=== PATIENT | male | born 1985 | race Caucasian/White ===

== ENCOUNTER 2018-03-29 15:45 | Outpatient (CLI) | payer MEDICAID ==
--- NOTE | 2018-03-30 08:28 | XRAY Report ---
Procedure Date: 03/29/2018 Accession Number: [id number] / [id number] Procedure: XRN - Cervical Spine 2 View CPT Code: FULL RESULT: EXAM: Cervical Spine 2 View DATE: 03/29/2018 4:08 PM CLINICAL HISTORY: CERVICAL RADICULOPATHY TECHNIQUE: 3 view cervical spine COMPARISON: None FINDINGS: There is mild degenerative disc disease at C5-6. The prevertebral soft tissues are unremarkable. There is no evidence of fracture or subluxation. IMPRESSION: Mild degenerative changes at C5-6.
--- NOTE | 2018-03-30 08:34 | XRAY Report ---
Procedure Date: 03/29/2018 Accession Number: [id number] / [id number] Procedure: XRN - Lumbar Spine 2 View CPT Code: FULL RESULT: EXAM: Lumbar Spine 2 View DATE: 03/29/2018 4:10 PM CLINICAL HISTORY: SCIATICA TECHNIQUE: 3 view lumbar spine COMPARISON: None FINDINGS: Lumbar vertebral bodies demonstrate normal height and alignment. The disc spaces are preserved. There is no evidence of fracture or subluxation. IMPRESSION: Normal lumbar spine.
== END 2018-03-29 15:46 | disposition home or self-care (01) ==
LOC: DI.N 15:45
PROVIDERS: ATTEND Nurse Practitioner
DX: M50.322 Other cervical disc degeneration at C5-C6 level (principal)
CPT/HCPCS: 72040; 72100

== ENCOUNTER 2019-01-28 11:04 | Emergency (ER) | payer MEDICAID, OTHER ==
[2019-01-28 11:28] VITALS: BP 146/71
[2019-01-28] MEDS ORDERED: TETANUS/DIPHTHERIA/PERTUSSIS 0.5 ML SYRINGE IM ONE (12:59)
[2019-01-28] MEDS ORDERED: cephALEXin 250 MG CAPSULE PO STA (12:59)
--- NOTE | 2019-01-28 13:01 | ED Physician Documentation ---
PD HPI UPPER EXT INJURY - Stated complaint Stated Complaint: RT FINGER PX/REDNESS - Chief complaint Chief Complaint: Wound - History obtained from History obtained from: Patient - History of Present Illness Location: Right (Healthy young man with unknown tetanus has a wound on the dorsum of the right second MCP with drainage and pain going up the hand without fevers or chills. He does not know how he got it. He thought he might have a splinter but does not remember specifically a splinter. I did query him about specific of potential fight bite and he denies this.) Review of Systems Constitutional: reports: Reviewed and negative Throat: reports: Reviewed and negative Cardiac: reports: Reviewed and negative PD PAST MEDICAL HISTORY - Present Medications Home Medications: Ambulatory Orders Medication Instructions Recorded Confirmed Cephalexin [Keflex] 500 mg PO Q6H #28 capsule 01/28/19 - Allergies Allergies/Adverse Reactions: Allergies Allergy/AdvReac Type Severity Reaction Status Date / Time No Known Drug Allergies Allergy Verified 01/28/19 11:28 PD ED PE NORMAL - Vitals Vital signs reviewed: Yes - General General: Alert and oriented X 3, No acute distress - Extremities Extremities: Other (There is a little pustular lesion on the dorsum of the right second MCP with full range of motion of that digit and mild cellulitis coming up to the wrist. It was cultured during examination. There is no foreign body identified.) - Neuro Neuro: Alert and oriented X 3, Normal speech Results - Vitals Vitals: Vital Signs - 24 hr 01/28/19 11:26 Temperature 36.6 C Heart Rate 67 Respiratory 18 Rate Blood Pressure 146/71 H O2 Saturation 100 Oxygen O2 Source Room air Departure - Departure Disposition: 01 Home, Self Care Clinical Impression: Cellulitis of right hand Condition: Good Record reviewed to determine appropriate education?: Yes Instructions: Cellulitis Dc Prescriptions: Cephalexin [Keflex] 500 mg PO Q6H #28 capsule Comments: We are performing a wound culture, the results should be done in 48-72 hours. If antibiotic change is necessary we will call you. Return if worse in the meantime, especially if you develop increased pain, fevers, cannot keep down the medication. Otherwise follow-up with your physician in approximately 2-3 days.
== END 2019-01-28 13:21 | disposition home or self-care (01) ==
LOC: ED 11:04
DX: L03.113 Cellulitis of right upper limb (principal); S61.401A Unspecified open wound of right hand, initial encounter; X58.XXXA Exposure to other specified factors, initial encounter; Z23 Encounter for immunization
CPT/HCPCS: 87070; 87205; 90471; 90715; 99283; A9270

== ENCOUNTER 2019-06-24 15:18 | Emergency (ER) | payer OTHER ==
[2019-06-24 15:26] VITALS: BP 148/76
--- NOTE | 2019-06-24 15:40 | ED Physician Documentation ---
PD HPI LOWER EXT INJURY - Stated complaint Stated Complaint: L LEG LAC - Chief complaint Chief Complaint: Laceration - History obtained from History obtained from: Patient - History of Present Illness PD HPI LOW EXT INJURY LOCATION: Left (Healthy 33-year-old gentleman up-to-date on tetanus fell well changing a light bulb at home just prior to arrival and has a laceration as he fell from the way down.) Review of Systems Constitutional: denies: Fever, Chills Cardiac: reports: Reviewed and negative Respiratory: reports: Reviewed and negative PD PAST MEDICAL HISTORY - Past Medical History Past Medical History: Yes Psych: Depression - Past Surgical History Past Surgical History: No - Present Medications Home Medications: Ambulatory Orders Medication Instructions Recorded Confirmed buPROPion [Wellbutrin Sr] 100 mg PO BID 06/24/19 06/24/19 - Allergies Allergies/Adverse Reactions: Allergies Allergy/AdvReac Type Severity Reaction Status Date / Time No Known Drug Allergies Allergy Verified 06/24/19 15:23 - Social History Does the pt smoke?: Yes Smoking Status: Current every day smoker Does the pt drink ETOH?: No Does the pt have substance abuse?: No - Immunizations Immunizations are current?: Yes - POLST Patient has POLST: No PD ED PE NORMAL - Vitals Vital signs reviewed: Yes - General General: Alert and oriented X 3, No acute distress - Extremities Extremities: Other (There is a long but very shallow linear last medial side of the left knee, only a couple of centimeters of it or more than a scrape worth deep. There is also an abrasion/very shallow laceration on the underside of the left great toe. No bony tenderness in any of these areas, no limited ROM) Results - Vitals Vitals: Vital Signs - 24 hr 06/24/19 15:23 Temperature 36.5 C Heart Rate 64 Respiratory 16 Rate Blood Pressure 148/76 H O2 Saturation 100 Oxygen O2 Source Room air PD MEDICAL DECISION MAKING - ED course ED course: The wounds were cleansed, the toe needed only a Band-Aid. There were a couple gaping areas there were still quite shallow on the left leg that were Steri- Stripped. He was given advice on wound care. Departure - Departure Disposition: 01 Home, Self Care Clinical Impression: Abrasion Condition: Good Record reviewed to determine appropriate education?: Yes Instructions: ED Abrasion Comments: Your blood pressure was elevated today on check into the emergency department. This does not mean that you have hypertension, it is a common phenomenon to come to the emergency department and have elevated blood pressure. I recommend that you see your primary care physician within the week to have it rechecked when you are feeling better.
== END 2019-06-24 15:42 | disposition home or self-care (01) ==
LOC: ED 15:18
DX: S80.812A Abrasion, left lower leg, initial encounter (principal); S90.412A Abrasion, left great toe, initial encounter; W11.XXXA Fall on and from ladder, initial encounter; Y93.E9 Activity, other interior property and clothing maintenance; Y92.009 Unspecified place in unspecified non-institutional (private) residence as the place of occurrence of the external cause; R03.0 Elevated blood-pressure reading, without diagnosis of hypertension; F17.200 Nicotine dependence, unspecified, uncomplicated
CPT/HCPCS: 99281

== ENCOUNTER 2019-07-19 10:51 | Outpatient (CLI) | payer OTHER ==
[2019-07-19 18:53] LABS: BASOPHILS % (AUTO) 0.4 %; EOSINOPHILS # (AUTO) 0.1 10^3/uL (0.0-0.7); EOSINOPHILS % (AUTO) 1.8 %; HGB - HEMOGLOBIN 13.9 g/dL (14.0-18.0); LYMPHOCYTES # (AUTO) 1.6 10^3/uL (1.5-3.5); LYMPHOCYTES % (AUTO) 31.8 %; MEAN CORPUSCULAR HEMOGLOBIN 29.1 pg (27.0-31.0); MEAN CORPUSCULAR HGB CONC 31.1 g/dL (32.0-36.0); MEAN CORPUSCULAR VOLUME 93.5 fL (80.0-94.0); MEAN PLATELET VOLUME 10.3 fL (7.4-11.4); MONOCYTES # (AUTO) 0.5 10^3/uL (0.0-1.0); MONOCYTES % (AUTO) 9.1 %; NEUTROPHILS # (AUTO) 2.8 10^3/uL (1.5-6.6); NEUTROPHILS % (AUTO) 56.7 %; PLT - PLATELET COUNT 247 10^3/uL (130-450); RED BLOOD COUNT 4.78 10^6/uL (4.70-6.10); RED CELL DISTRIBUTION WIDTH 14.2 % (12.0-15.0)
[2019-07-19 19:17] LABS: ALBUMIN 4.6 g/dL (3.2-5.5); ALBUMIN/GLOBULIN RATIO 1.5 (1.0-2.2); ALKALINE PHOSPHATASE 34 IU/L (42-121); ALT ALANINE AMINOTRANSFERASE 23 IU/L (10-60); AST ASPARTATE AMINOTRANSFERASE 22 IU/L (10-42); BILIRUBIN,TOTAL 0.8 mg/dL (0.2-1.0); BUN - BLOOD UREA NITROGEN 18 mg/dL (6-20); CALCIUM 9.2 mg/dL (8.5-10.3); CARBON DIOXIDE - CO2 31 mmol/L (21-32); CHLORIDE 100 mmol/L (101-111); CHOLESTEROL 199 mg/dL; CREATININE 0.8 mg/dL (0.6-1.2); GFR - MDRD 111 (>89); GLUCOSE 96 mg/dL (70-100); HDL CHOLESTEROL 66 mg/dL; LDL CHOLESTEROL,CALCULATED 124 mg/dL; LDL/HDL RATIO 1.9 (<3.6); SODIUM 139 mmol/L (135-145); TOTAL PROTEIN 7.7 g/dL (6.7-8.2); VLDL CHOLESTEROL 9 mg/dL
[2019-07-19 19:39] LABS: HB2 TOTAL 14.3 g/dL; HEMOGLOBIN A1C 0.49 g/dL; HEMOGLOBIN A1C % 5.3 % (4.6-6.2)
== END 2019-07-19 23:59 | disposition home or self-care (01) ==
LOC: LAB.N 10:51
PROVIDERS: ATTEND Family Medicine
DX: R63.0 Anorexia (principal); F51.04 Psychophysiologic insomnia; F41.1 Generalized anxiety disorder
CPT/HCPCS: 36415; 80053; 80061; 83036; 83721; 84443; 85025

== ENCOUNTER 2019-07-19 13:06 | Outpatient (CLI) | payer OTHER ==
--- NOTE | 2019-07-19 14:41 | XRAY Report ---
Reason: LUMBAR RADICULOPATHY Procedure Date: 07/19/2019 Accession Number: [id number] / [id number] Procedure: XRN - Lumbar Spine Complete CPT Code: FULL RESULT: EXAM: LUMBOSACRAL SPINE RADIOGRAPHY EXAM DATE: 07/19/2019 01:25 PM. CLINICAL HISTORY: LUMBAR RADICULOPATHY. COMPARISONS: LUMBAR SPINE 2 VIEW 03/29/2018 4:09 PM. TECHNIQUE: 5 views. FINDINGS: Alignment: Normal. No spondylolisthesis or scoliosis. Bones: Five [id number] lumbar vertebral bodies are present. No fractures or bone lesions. Disks: Normal. Disk heights are maintained. Facets: No degenerative changes. Sacroiliac Joints: Unremarkable. Soft Tissues: Normal. The visualized bowel gas pattern is normal. IMPRESSION: Normal lumbar spine radiography. No significant change. RADIA
== END 2019-07-19 13:07 | disposition home or self-care (01) ==
LOC: DI.N 13:06
PROVIDERS: ATTEND Family Medicine
DX: M54.16 Radiculopathy, lumbar region (principal); R63.0 Anorexia; F51.04 Psychophysiologic insomnia; F41.1 Generalized anxiety disorder
CPT/HCPCS: 36415; 72110; 80053; 80061; 83036; 84443; 85025

== ENCOUNTER 2024-07-03 02:32 | Emergency (ER) | payer MEDICAID ==
--- NOTE | 2024-07-03 02:43 | ED Physician Documentation ---
PD HPI NVD - Stated complaint Stated Complaint: WITHDRAWL - Chief complaint Chief Complaint: General - History obtained from History obtained from: Patient - History of Present Illness Timing - onset: How many hours ago Timing - duration: Hours Timing - details: Gradual onset (Was having some nausea and abdominal cramps and general unwellness and myalgias for several hours and then significantly worsened when took Suboxone. He thought he had waited long enough after his last fentanyl.) Contributing factors: Other (Regular fentanyl use and is wanting to stop. He was seen at a clinic in [place] and prescribe Suboxone to take after 24 hours off his last dose. He is now visiting family here for a few days.). No: Sick contact, Bad food PD PAST MEDICAL HISTORY - Past Medical History Past Medical History: Yes Psych: Depression - Past Surgical History Past Surgical History: No - Present Medications Home Medications: Ambulatory Orders Medication Instructions Recorded Confirmed buPROPion [Wellbutrin Sr] 100 mg PO BID 06/24/19 06/24/19 - Allergies Allergies/Adverse Reactions: Allergies Allergy/AdvReac Type Severity Reaction Status Date / Time No Known Drug Allergies Allergy Verified 07/03/24 02:41 - Social History Does the pt smoke?: Yes Smoking Status: Current every day smoker Does the pt drink ETOH?: No Does the pt have substance abuse?: Yes Substance Use and Type: Heroin - Immunizations Immunizations are current?: Yes - POLST Patient has POLST: No PD ED PE NORMAL - Vitals Vital signs reviewed: Yes - General General: Alert and oriented X 3, Well developed/nourished - Cardiac Cardiac: RRR, No murmur - Respiratory Respiratory: No respiratory distress, Clear bilaterally - Abdomen Abdomen: Soft, Non distended. No: Normal bowel sounds Results - Vitals Vitals: Oxygen O2 Source Room air PD Medical Decision Making - ED course Complexity details: re-evaluated patient (he has diminished cramps and nausea with now no vomiting aftert buprenorphine and zofran with toradol. Still nausea and feneral malaise. ), considered differential (he is having cramps, nausea, vomiting, shaky, feeling achty, after taking suboxone for Fentanyl withdrawal. Had gotten script and told to wait for withdrawal symptoms. He thinks he took it too early and cause more quick withdrawal. ), d/w patient ED course: The patient certainly could have a early viral illness or such but the timing of his symptoms came on initially with time after his fentanyl use which was about a day and a half ago. Also markedly worse after the Suboxone. There is would speak with the idea of precipitated withdrawal. Common treatment for that is actually more Suboxone to have more affinity with the receptors at a lower potency and bring to a more steady state. This will still provide some level of symptoms but should be improved from current. He was given IV fluids along with some buprenorphine 2 doses of 0.3 mg and some Zofran and Toradol. Generally improved though still feeling nauseous to some degree with general weakness. He does have already prescribed Suboxone to take twice daily and a follow-up appointment in [place] for next week. He is visiting family here at this time. He will be following up there. Departure - Departure Disposition: 01 Home, Self Care Clinical Impression: Nausea and vomiting, Abdominal cramping, Opioid use disorder, mild, in early remission Condition: Stable Record reviewed to determine appropriate education?: Yes Instructions: ED Nausea Vomiting Comments: The extra dosing on the buprenorphine should have helped with the precipitated withdrawal as it does have a higher affinity for the receptors than fentanyl. Saturating the receptors should help. However this not to say he may not have symptoms and side effects also just from the medicines. Alternatives could also be some level of upset stomach or "stomach flu". Presuming also some level of ill feeling from just the medications, that should decrease with a bit of time the rest of overnight and into tomorrow. Small frequent fluids. Drew food. Ondansetron as needed for nausea. There should be continued improvement through the morning. At that point you would be okay to start the dosing of the buprenorphine strips as prescribed by [facility]. Follow-up with the treatment clinic you were referred to. Return as needed If not continued improvement to feeling okay through the day.. Forms: PCP List Discharge Date/Time: 07/03/24 04:55
[2024-07-03] MEDS: SODIUM CHLORIDE 0.9% 1,000 ML IV STA (03:04)
[2024-07-03] MEDS: ONDANSETRON 4 MG/2 ML VIAL IVP STA (03:06)
[2024-07-03] MEDS: KETOROLAC 30 MG/ML VIAL IVP STA (03:06)
[2024-07-03] MEDS: BUPRENORPHINE 0.3 MG/ML VIAL IVP ONE ×2 (03:07→03:40)
[2024-07-03] MEDS: DROPERIDOL 5 MG/2 ML VIAL IVP STA (03:39)
[2024-07-03] MEDS: ONDANSETRON ODT 4 MG Prepack 2 TL PRN (04:18)
[2024-07-03] MEDS: diphenhydrAMINE INJ 50 MG/ML VIAL IVP STA (04:26)
[2024-07-03 04:55] VITALS: BP 140/88; O2SAT 98
== END 2024-07-03 04:55 | disposition home or self-care (01) ==
LOC: ED 02:32
DX: R11.2 Nausea with vomiting, unspecified (principal); R10.84 Generalized abdominal pain; F11.90 Opioid use, unspecified, uncomplicated; F17.200 Nicotine dependence, unspecified, uncomplicated
CPT/HCPCS: 96374; 96375; 96376; 99284; 99285; A9270; J0592; J1200